=== PATIENT | female | born 1965 | race Caucasian/White ===

== ENCOUNTER 2019-07-14 10:27 | Outpatient (AMBR) | payer MEDICAID, SELFPAY ==
--- NOTE | 2019-07-14 11:03 | PT.OIERPT ---
PT OP Initial Eval Patient Information Visit Reasons: POST OP LEFT SHOULDER Medical Diagnosis: M75.102; M75.122 Treatment Dx #1: Left Shoulder Mobility Deficits Treatment Dx #2: Left Shoulder Pain Start of Care: 07/14/19 Date of Onset: 06/12/19 Initial Assessment Subjective Pt is a 54 y/o female s/p left rotator cuff repair with acriomioplasty secondary to past shoulder injury. Pt still has pain (8/10) with all activities. Pt mention that she has limitation with overhead motions, lifting, chores, self care, cooking, cleaning, and recreational activities. Objective Left Shoulder AROM Flexion: 145 deg Abduction: 90 deg External Rotation: 45 deg Internal Rotation: 50 deg Left Shoulder PROM Flexion: 160 deg Abduction: 110 deg External Rotation: 50 deg Internal Rotation: 70 deg Left Shoulder MMTs: grossly 3-/5 Left Scapula MMTs: grossly 3-/5 [employer] Strength R: 76 lbs L: 60 lbs Assessment Pt demonstrate left shoulder pain with mobility deficits s/p rotator cuff repair leading to decline function. Pt will benefit from physical therapy to increase strength, mobility, work on shoulder stability Short Term and [employer] Goals 1) Increase left shoulder PROM WNL in 12 wks to prevent frozen shoulder 2) Increase left shoulder AROM WFL in 12 wks to be able to perform overhead motions 3) Increase left shoulder MMTs grossly 4-/5 in 12 wks to be able to perform lifting activities 4) Increase left scapula MMTs grossly to 3+/5 in 12 wks to be able to perform self care activities 5) Decrease shoulder pain to 2/10 in 12 wks to be able to perform recreational activities 6) Indep with HEP Treatment Plan 1) Manual Therapy 2) Therapeutic Activities 3) Therapeutic Exercises 4) Modalities (ice, heat, estim) Frequency and Duration 2 x wk for 12 wks Certification Dates: 07/14/19 to 10/14/19 Office Procedures PT Procedures PT Date of Service: 07/14/19 OP PT Eval Mod Complex 30 minutes: Yes
== END 2019-07-30 23:59 | disposition home or self-care (01) ==
PROVIDERS: PCP Family Medicine; Referring Provider Family Medicine; Visit Provider Orthopaedic Surgery
DX: M25.512 Pain in left shoulder (principal); S46.012D Strain of muscle(s) and tendon(s) of the rotator cuff of left shoulder, subsequent encounter; X58.XXXD Exposure to other specified factors, subsequent encounter
CPT/HCPCS: 97162